=== PATIENT | female | born 1975 | race Hispanic/Latino ===

== ENCOUNTER 2020-02-02 10:34 | Day surgery (SDC) | payer OTHER ==
[~2020-02-02 10:34] MED LIST: SODIUM CHLORIDE 0.9% 1000 ML 1,000 ML IV SCH
[2020-02-02] MEDS ORDERED: propofoL 200 MG/20 ML VIAL IV ONE ×2 (12:52→13:06)
[2020-02-02] MEDS ORDERED: SODIUM CHLORIDE 0.9% 1000 ML IV SOLN IV ONE (12:53)
--- NOTE | 2020-02-02 13:21 | Procedure Note ---
Date of procedure: 02/02/20 Pre-op diagnosis: Diarrnea/ Colitis/ Partial Colon resection Post-op diagnosis: other (Diarrhea/ Colitis/ Subtotal Colectomy) Procedure: Flexible Sigmoidoscopy with Biopsy Anesthesia: MAC Surgeon: LUL BACA Estimated blood loss: minimal Pathology: list Specimen disposition: to lab Condition: stable Disposition: same day (Avoid aspirin and NSAID and anticoagulants for 5 days; otherwise resume home medication and follow up in 1 to 2 weeks ([phone]).)
--- NOTE | 2020-02-02 13:26 | Operative Report ---
INDICATIONS: This is a 44-year-old white female who had been in the hospital with intestinal obstruction, possibly from adhesions for which required surgery and the patient underwent what appears like a subtotal colectomy, she is not sure as to what part of the colon was removed. She has been having diarrhea. Colonoscopy was attempted to see if she had any associated colitis. Initial rectal exam was unremarkable. Instrument could only be passed up to the sigmoid, there appeared to be some inflammation near the anastomotic site. Photodocumentation and biopsy was obtained. Further insertion beyond the sigmoid was not possible. It appeared that there may be mucosa of the small intestine suggested that the patient may have had a subtotal colectomy. ASSESSMENT: Diarrhea, colitis at the anastomotic site, possibly secondary to the surgery, subtotal colectomy. PLAN: To wait for the biopsy results. Avoid aspirin and aspirin-related products for the next few days. Continue treatment with Welchol and other medications and follow up in the office in 1-2 weeks' time. The procedure was done in the GI lab with assistance of the GI lab team, which included the GI nurse, Sam parks and with assistance of anesthesia. The procedure was a flexible sigmoidoscopy and not a colonoscopy since insertion beyond the sigmoid was not possible and appeared that the patient had subtotal colectomy with also what appeared like small bowel mucosa beyond that. JOB# [id number] ELIZABETH/ARMANI
--- NOTE | 2020-02-02 13:33 | Anesthesia Consultation ---
Anesthesia Consult and Med Hx Date of service: 02/02/20 - Airway Anesthetic Teeth Evaluation: Poor ROM Head & Neck: Adequate Mental/Hyoid Distance: Adequate Mallampati Class: Class II Intubation Access Assessment: Probably Good - Pre-Operative Health Status ASA Pre-Surgery Classification: ASA3 Proposed Anesthetic Plan: MAC - Pulmonary Hx Smoking: Yes (1 p/day x 20 years) COPD: Yes (chronic bronchitis) - Central Nervous System Hx Psychiatric Problems: Yes (anxiety/depression) - Gastrointestinal Hx Ulcer: No (s/p colon resection for perforated bowel 09/2019) - Other Systems Hx Cancer: No
--- NOTE | 2020-02-02 13:33 | Anesthesia Day of Surgery ---
Anesthesia Day of Surgery - Day of Surgery Patient Examined: Yes Patient H&P Reviewed: Yes Patient is NPO: Yes
[2020-02-02 14:06] VITALS: BP 100/54
--- NOTE | 2020-02-02 14:38 | Post Anesthesia Evaluation ---
- Post Anesthesia Evaluation Patient Participated: Yes Airway Patent: Yes Stable Respiratory Function: Yes Nausea/Vomiting: No Temp > 96.8F: Yes Pain Manageable: Yes Adequeate Hydration: Yes Anesthesia Complications: No Block Receding Appropriately: Not Applicable Patient on Ventilator: No
== END 2020-02-02 10:35 | disposition home or self-care (01) ==
LOC: GIO 10:34
DX: R19.7 Diarrhea, unspecified (principal); R10.9 Unspecified abdominal pain; R11.2 Nausea with vomiting, unspecified; K63.89 Other specified diseases of intestine; F17.210 Nicotine dependence, cigarettes, uncomplicated; G43.909 Migraine, unspecified, not intractable, without status migrainosus; J44.9 Chronic obstructive pulmonary disease, unspecified; K21.9 Gastro-esophageal reflux disease without esophagitis; F41.9 Anxiety disorder, unspecified; Z98.890 Other specified postprocedural states; Z90.49 Acquired absence of other specified parts of digestive tract; Z88.0 Allergy status to penicillin
CPT/HCPCS: 45331; 88305; J2704; J7030